=== PATIENT | female | born 1935 | race Caucasian/White ===

== ENCOUNTER 2017-08-18 13:35 | Observation (INO) ==
--- NOTE | 2017-08-18 17:40 | Internal Med History&Physical ---
Date of Encounter: 08/18/17 Time of Encounter: 17:36 Assessment and Plan (1) UTI (urinary tract infection) Current visit: No Status: Acute recent will recheck ua and decide in needs treatment Qualifiers: Urinary tract infection type: site unspecified Hematuria presence: without hematuria Qualified Code(s): N39.0 - Urinary tract infection, site not specified (2) Weakness Current visit: No Status: Acute due to anemia needs blood transfusion (3) GI bleed Current visit: No Status: Acute very likely UGI bleed Qualifiers: GI bleed type/associated pathology: unspecified gastrointestinal hemorrhage type Qualified Code(s): K92.2 - Gastrointestinal hemorrhage, unspecified (4) Hypertension Current visit: No Status: Chronic chronic well controlled Qualifiers: Hypertension type: essential hypertension Qualified Code(s): I10 - Essential (primary) hypertension (5) Anemia Current visit: Yes Status: Acute Qualifiers: Anemia type: unspecified type Qualified Code(s): D64.9 - Anemia, unspecified Internal Medicine - H&P: HPI Chief complaint: transfer from [facility] due to gi bleed Admitted From: Intrahospital Transfer Plans for Post Hospital Care: Home History of present illness: Ms. Bauer is a 81 year old female Patient with history of hypertension, DVT in the past, smoking history. Patient has some black stools over the weekend and presented to [facility] emergency room having some lightheadedness diagnosed with a GI bleed and admitted there hemoglobin had dropped n further from 8.9 to 7.2 e transferred here for GI evaluation. Patient is not having any chest pain. We will consult Dr. Dickerson for further evaluation. Past Med Surg Social Fam HX - Past Medical History Medical history: hypertension, other Psychiatric history: anxiety - Past Surgical History Surgical History: non-contributory - Social History Smoking Status: Never smoker Smokeless Tobacco Status: No Alcohol use: none Drug use: none - Family History Mother Living Status: Cause of : During childbirth Father Living Status: Hx Family Cardiac Disorders: (Aneurysm) Internal Medicine - H&P: Meds Lisinopril [Zestril] 10 mg PO DAILY 08/16/17 [History] Metoprolol [Lopressor] 12.5 mg PO BID 08/16/17 [History] Verapamil ER (24 HR) [Calan SR] 240 mg PO DAILY 08/16/17 [History] Ascorbic Acid [Vitamin C] 500 mg PO DAILY@0630 tablet 08/18/17 [Rx] Ferrous Sulfate 325 mg PO DAILY@0630 tablet 08/18/17 [Rx] 3 Allergy/AdvReac Type Severity Reaction Status Date / Time Penicillins Allergy Hives Verified 08/15/17 11:00 All Systems PM: A 10-system review of systems was performed and is negative for pertinent findings except as documented above in the HPI. - Constitutional Constitutional: lethargy, weakness - EENT Eyes: no change in vision, no discharge, no pain, no photophobia Ears: no ear discharge, no ear pain, no tinnitus Nose, mouth and throat: no dysphagia, no nasal discharge, no neck pain, no sore throat - Cardiovascular Cardiovascular ROS IM: lightheadedness - Respiratory Respiratory: no cough, no dyspnea, no wheezing, no excessive phlegm production - Gastrointestinal Gastrointestinal: melena - Genitourinary Genitourinary: no change in urinary stream, no dysuria, no flank pain, no hematuria - Constitutional Vitals: Temp Pulse Resp BP Pulse Ox 98.1 F 99 18 153/70 99 08/18/17 17:09 08/18/17 17:09 08/18/17 17:09 08/18/17 17:09 08/18/17 17:18 - Head Head exam: Present: atraumatic, normocephalic - Eye Eye exam: Present: PERRL, conjuntiva pink, sclera anicteric Pupils: Present: PERRL - Neck Neck exam general surgery: Present: supple, trachea midline. Absent: lymphadenopathy - Respiratory Respiratory exam: Present: CTAB. Absent: accessory muscle use, rales, rhonchi, wheezes - Cardiovascular Cardiovascular exam: Present: RRR, +S1, +S2. Absent: diastolic murmur, gallop, rubs, systolic murmur - GI/Abdominal GI/Abdominal exam: Present: normal bowel sounds, soft, no peritoneal signs. Absent: distended, tenderness - Extremities Exam Extremities exam: Present: warm, radial pulses palpable and symmetrical. Absent : calf tenderness, cyanotic, pedal edema - Neurological Exam Neurological exam: Present: CN II-XII intact, oriented X3, no focal deficits. Absent: pronater drift, facial droop, speech deficit - Skin Skin exam: Present: dry, intact
[2017-08-18] MEDS ORDERED: Acetaminophen 325 MG TABLET PO PRN (17:57)
[2017-08-18] MEDS ORDERED: Naloxone 0.4 MG/ML INJ IVP PRN (17:57)
[2017-08-18] MEDS ORDERED: 0.9 % Sodium Chloride 250 ML ONE (21:42)
[2017-08-19] MEDS ORDERED: 0.9 % Sodium Chloride 250 ML ONE (01:52)
[2017-08-19] MEDS: Ascorbic Acid 500 MG TABLET PO SCH (06:34)
[2017-08-19 06:56] LABS: Eosinophils # 0.2 K/mcL (0.0-0.6); Hematocrit 29.7 % (35.3-44.9); Hemoglobin 9.8 g/dL (11.5-15.4); Immature Granulocytes % 0.5 % (0-4); Lymphocytes # 2.5 K/mcL (0.6-4.6); Lymphocytes % 38.5 %; Mean Corpuscular Hemoglobin 30.2 pg (28.0-33.3); Mean Corpuscular Volume 91.4 fL (83.0-100.0); Mean Platelet Volume 10.2 fL (9.4-12.4); Monocytes # 0.7 K/mcL (0.0-1.3); Monocytes % 10.5 %; Nucleated Red Blood Cells 0.3 /100 WBC (0); Platelet Count 189 K/mcL (140-400); Red Blood Count 3.25 M/mcL (3.82-4.97); Segmented Neutrophils % 47.5 %
[2017-08-19 07:09] LABS: Alanine Aminotransferase 9 Units/L (7-52); Albumin/Globulin Ratio 1.7 (1.1-2.2); Alkaline Phosphatase 40 Units/L (34-104); Aspartate Amino Transferase 14 Units/L (13-39); BUN/Creatinine Ratio 24 (6-26); Bilirubin,Total 0.6 mg/dL (0.3-1.0); Blood Urea Nitrogen 20 mg/dL (8-23); Calcium 8.2 mg/dL (8.6-10.3); Carbon Dioxide 25 mEq/L (23-29); Chloride 112 mEq/L (98-107); Chol/HDL Ratio 3.5 (0-4.9); Cholesterol 156 mg/dL (< 200); Globulin 1.8 g/dL (2.4-3.5); Glucose 90 mg/dL (70-105); HDL Cholesterol 45 mg/dL (40-59); LDL Cholesterol,Calculated 99 mg/dL (0-99); Magnesium 1.9 mg/dL (1.6-2.6); Osmolality,Calculated 294 (280-300); Potassium 3.8 mEq/L (3.5-5.1); Sodium 141 mEq/L (136-145); Total Protein 4.8 g/dL (6.4-8.9); Triglycerides 60 mg/dL (< 150); eGFR For African Americans > 60 (> 60); eGFR For Non-African Americans > 60 (> 60)
[2017-08-19 09:27] LABS: Prothrombin Time 10.9 Seconds (9.4-12.1)
--- NOTE | 2017-08-19 11:07 | Gastroenterology Consult Note ---
<Poly Wilson - Last Filed: 08/19/17 11:04> Date of Encounter: 08/19/17 Time of Encounter: 10:15 - Assessment and plan (1) GI bleed Current Visit: No Status: Acute Assessment and plan: Pt with black tarry stools. Will plan for EGD, may need colonoscopy if source of bleeding not found. Qualifiers: GI bleed type/associated pathology: unspecified gastrointestinal hemorrhage type Qualified Code(s): K92.2 - Gastrointestinal hemorrhage, unspecified - Time Spent With Patient Total time spent is greater than 50% in coordination of care (as documented) at patient's floor/unit and/or counseling patient: GI History of Present Illness - Data of Consult Patient: new to practice Consult date: 08/19/17 Requesting Physician: Luiza Yin MD - Consult Narrative Reason for consult: tarry stools History of present illness: Ms. Bauer is a 81 year old female Patient with history of hypertension, DVT in the past, smoking history. Patient reports on Wednesday she was so week she could not even walk. She was seen at urgent care and reports while she was there she had a large black stool, denies any since that time. She denies any bright red rectal bleeding. She denies abdominal pain, nausea, vomiting or diarrhea. She states she has lost 20 pounds the past year by following weight watchers. Hgb dropped to 7.2 she was transfused 2 units prbcs and is up to 9.[address] abdomen showed chronic large hiatal hernia. Troponin was mildly elevated Colonoscopy: , 10 years ago per pts reports EGD: 02/23 gastric polyps benign NSAIDS/ASA: rarely takes NSAIDS Anticoagulants:denies Past Med Surg Social Fam HX - Past Medical History Medical history: hypertension, other Psychiatric history: anxiety - Past Surgical History Surgical History: non-contributory - Social History Smoking Status: Never smoker Smokeless Tobacco Status: No Alcohol use: none Drug use: none - Family History Mother Living Status: Cause of : During childbirth Father Living Status: Hx Family Cardiac Disorders: (Aneurysm) Review of Systems: GI: as per [place] GENERAL: denies fever or chills EYES: denies yellow discoloration ENT: denies pain with swallowing or difficulty swallowing CARDIO: denies chest pain, palpitations RESP:Shortness of breath with exertion : denies change in color of urine NEURO: weakness HEME: Denies any bruising MS: denies joint pain, joint swelling or back pain. DERM: denies rash or itching PSYCH: Denies history of anxiety or depression - Constitutional Vitals: Temp Pulse Resp BP Pulse Ox 98 F 86 20 146/79 99 08/19/17 05:15 08/19/17 09:00 08/19/17 05:15 08/19/17 09:00 08/18/17 17:18 Exam: CONSTITUTIONAL:~alert, no acute distress.~HEAD:~normocephalic.~EYES:~no jaundice.~NECK:~no obvious swelling.~HEART:~regular rate and rhythm, no murmurs. ~LUNGS:~bilateral good air entry.~ABDOMEN:~non distended, soft, non tender, no masses palpable, no organomegaly.~RECTAL EXAM:~Deferred.~EXTREMITIES:~no clubbing, cyanosis or edema.~SKIN:~pallor noted, no stigmata of chronic liver disease.~NEUROLOGIC:~no obvious focal defect.~~~~ Results - Labs CBC & Chem 7: 08/19/17 06:13 08/19/17 06:13 Labs: Last Result Calcium 8.2 mg/dL (8.6-10.3) L 08/19/17 06:13 Troponin I 0.04 ng/mL (< 0.04) H* 08/19/17 08:56 Triglycerides 60 mg/dL (< 150) 08/19/17 06:13 Entire Visit Hgb 9.8 g/dL (11.5-15.4) L D 08/19/17 06:13 Hct 29.7 % (35.3-44.9) L 08/19/17 06:13 PT 10.9 Seconds (9.4-12.1) 08/19/17 08:56 Total Bilirubin 0.6 mg/dL (0.3-1.0) 08/19/17 06:13 AST 14 Units/L (13-39) 08/19/17 06:13 ALT 9 Units/L (7-52) 08/19/17 06:13 - ABG ABG results: PT/INR, D-dimer PT 10.9 Seconds (9.4-12.1) 08/19/17 08:56 Consult Discharge Plan - Plan Referrals: Maurice Betts MD [Primary Care Provider] - <Praful Dickerson - Last Filed: 08/19/17 17:32> Date of Encounter: 08/19/17 Time of Encounter: 17:30 - Time Spent With Patient Total time spent is greater than 50% in coordination of care (as documented) at patient's floor/unit and/or counseling patient: GI History of Present Illness - Data of Consult Requesting Physician: Luiza Yin MD - Consult Narrative History of present illness: Ms. Bauer is a 81 year old female - Constitutional Vitals: Temp Pulse Resp BP Pulse Ox 98.5 F 96 16 185/83 94 08/19/17 15:52 08/19/17 15:52 08/19/17 15:52 08/19/17 15:52 08/19/17 15:52 Results - Labs CBC & Chem 7: 08/19/17 06:13 08/19/17 06:13 Labs: Last Result Calcium 8.2 mg/dL (8.6-10.3) L 08/19/17 06:13 Troponin I 0.04 ng/mL (< 0.04) H* 08/19/17 08:56 Triglycerides 60 mg/dL (< 150) 08/19/17 06:13 Entire Visit Hgb 9.8 g/dL (11.5-15.4) L D 08/19/17 06:13 Hct 29.7 % (35.3-44.9) L 08/19/17 06:13 PT 10.9 Seconds (9.4-12.1) 08/19/17 08:56 Total Bilirubin 0.6 mg/dL (0.3-1.0) 08/19/17 06:13 AST 14 Units/L (13-39) 08/19/17 06:13 ALT 9 Units/L (7-52) 08/19/17 06:13 - ABG ABG results: PT/INR, D-dimer PT 10.9 Seconds (9.4-12.1) 08/19/17 08:56 - Attending Attestation I have personally performed a face to face evaluation on this patient. I have reviewed and agree with the care plan. History and Exam by me shows: Pt seen. anemia, melena. EGD today
[2017-08-19] MEDS: cefTRIAXone 1,000 MG in Water for inj. (sterile) 20 ML 10 ML IVP SCH (11:12)
[2017-08-19] MEDS: Pantoprazole 40 MG VIAL IVP SCH ×2 (11:13→18:26)
[2017-08-19] MEDS ORDERED: *HR* FentaNYL (PF) 100 MCG/2 ML VIAL ONE (15:39)
[2017-08-19] MEDS ORDERED: *HR* Midazolam HCl 5 MG/5 ML VIAL IVP ONE (15:39)
[2017-08-19] MEDS ORDERED: Simethicone 40 MG/0.6 ML MLS IR ONE ×2 (15:56→17:33)
[2017-08-19] MEDS ORDERED: *HR* FentaNYL (PF) 100 MCG/2 ML VIAL IVP ONE ×2 (15:56→17:33)
[2017-08-19] MEDS ORDERED: Tetracaine/Benzocaine/Butamben 200MG/SPRAY (100SPY/BOT) MM ONE ×2 (15:56→17:33)
[2017-08-19] MEDS ORDERED: *HR* Midazolam HCl 2 MG/2 ML VIAL IVP ONE ×2 (15:56→17:33)
[2017-08-19] MEDS ORDERED: 0.9 % Sodium Chloride 1,000 ML IVC SCH (16:00)
--- NOTE | 2017-08-19 17:20 | Internal Med Progress Note ---
Date of Encounter: 08/19/17 Time of Encounter: 15:11 - Assessment and plan (1) GI bleed Current Visit: No Status: Acute Assessment and plan: - Pt states she has remote gastric ulcer history in the past. She denies chronic nsaid use - Given 2 units PRBC (08/18, 08/19) - NPO - GI consulted, recommendations appreciated - cycle H&H - Continue IV Protonix BID - Likely EGD today/tomorrow - Transfuse as needed Qualifiers: GI bleed type/associated pathology: unspecified gastrointestinal hemorrhage type Qualified Code(s): K92.2 - Gastrointestinal hemorrhage, unspecified (2) History of DVT (deep vein thrombosis) Current Visit: Yes Status: Acute Assessment and plan: Patient not on anticoagulant. Mechanical DVT prophylaxis only given patient GI bleed. (3) UTI (urinary tract infection) Current Visit: No Status: Acute Assessment and plan: Rocephin x3 days Qualifiers: Urinary tract infection type: site unspecified Hematuria presence: without hematuria Qualified Code(s): N39.0 - Urinary tract infection, site not specified (4) Weakness Current Visit: No Status: Acute Assessment and plan: Likely due to anemia (5) Hypertension Current Visit: No Status: Chronic Assessment and plan: Continue Lisinopril 10 mg daily Metoprolol 12.5 mg BID Add Hydralazine IV prn. Qualifiers: Hypertension type: essential hypertension Qualified Code(s): I10 - Essential (primary) hypertension (6) Elevated troponin Current Visit: Yes Status: Acute Assessment and plan: Troponin borderline elevated at 0.06 then came down to 0.04. She had no complaints of chest pain or shortness of breath. A troponin done three days ago was negative. This is likely demand ischemia in the setting of GI bleed. Will continue to monitor and transfuse patient as needed. - Subjective Interval history: Patient is 81 year old female with history of hypertension and previous DVT who came in to [facility] ED for dizziness. She was having dizziness on August 13 and went to urgent care on August 15 and was diagnosed with UTI and prescribed Cipro. When she was at urgent care center she had black tarry stool. She presented to [facility] yesterday after symptoms not improving on Cipro. She was found to have hemoglobin of 8.9. She was admitted to their medical floor for treatemtn. She was given IV Protonix and a CT abdomen/pelvis done showed no acute abnormalities, but did show chronic large hiatal hernia. A repeat hemoglobin showed gradual decrease to 7.2 so patient was transferred here to [facility] for EGD and further workup. GI was consulted here and patient evaluated by GI and recommendations pending. She has been transfused two units PRBC and patient tells me she feels a little better but still dizzy. She denies any abdominal pain, n/v. Tarry stool resolved but she did pass hard BM earlier in the day. - Constitutional Vitals: Temp Pulse Resp BP Pulse Ox 98.5 F 96 16 185/83 94 08/19/17 15:52 08/19/17 15:52 08/19/17 15:52 08/19/17 15:52 08/19/17 15:52 - Head Head exam: Present: atraumatic, normocephalic - Eye Eye exam: Present: PERRL, conjuntiva pink, sclera anicteric Pupils: Present: PERRL - Neck Neck exam general surgery: Present: supple, trachea midline. Absent: lymphadenopathy - Respiratory Respiratory exam: Present: CTAB. Absent: accessory muscle use, rales, rhonchi, wheezes - Cardiovascular Cardiovascular exam: Present: RRR, +S1, +S2. Absent: diastolic murmur, gallop, rubs, systolic murmur - GI/Abdominal GI/Abdominal exam: Present: normal bowel sounds, soft, tenderness, no peritoneal signs. Absent: distended - Extremities Exam Extremities exam: Present: warm, radial pulses palpable and symmetrical. Absent : calf tenderness, cyanotic, pedal edema - Neurological Exam Neurological exam: Present: CN II-XII intact, oriented X3, no focal deficits. Absent: pronater drift, facial droop, speech deficit - Skin Skin exam: Present: dry, intact Internal Medicine: Result - Labs CBC & Chem 7: 08/19/17 06:13 08/19/17 06:13 Labs: Short CBC 08/19/17 Range/Units 06:13 WBC 6.4 (4.3-11.1) K/mcL Hgb 9.8 L D (11.5-15.4) g/dL Hct 29.7 L (35.3-44.9) % Plt Count 189 (140-400) K/mcL Neutrophils # 3.0 (1.6-8.9) K/mcL BMP 08/19/17 06:13 Sodium 141 Potassium 3.8 Chloride 112 H Carbon Dioxide 25 BUN 20 Creatinine 0.82 Glucose 90 Calcium 8.2 L Cardiac Enzymes 08/18/17 08/19/17 08/19/17 Range/Units 18:17 06:13 08:56 Troponin I 0.06 H* 0.06 H* 0.04 H* (< 0.04) ng/mL Liver Function 08/19/17 Range/Units 06:13 Total Bilirubin 0.6 (0.3-1.0) mg/dL AST 14 (13-39) Units/L ALT 9 (7-52) Units/L Alkaline Phosphatase 40 (34-104) Units/L Albumin 3.0 L (3.5-5.7) g/dL - ABG Interpretation ABG results: PT/INR, D-dimer PT 10.9 Seconds (9.4-12.1) 08/19/17 08:56 Consult Discharge Plan - Plan Referrals: Maurice Betts MD [Primary Care Provider] -
[2017-08-19] MEDS ORDERED: SODIUM CHLORIDE/NAHCO3/KCL/PEG 4,000 ML SOLN.RECON PO ONE (18:00)
[2017-08-19 18:33] LABS: Hematocrit 32.5 % (35.3-44.9); Hemoglobin 10.8 g/dL (11.5-15.4)
[2017-08-20 01:18] LABS: Basophils % 0.1 %; Eosinophils # 0.1 K/mcL (0.0-0.6); Eosinophils % 1.6 %; Hematocrit 31.9 % (35.3-44.9); Hemoglobin 10.6 g/dL (11.5-15.4); Immature Granulocytes % 0.1 % (0-4); Lymphocytes % 28.8 %; Mean Corpuscular HGB Conc 33.2 g/dL (31.6-35.5); Mean Corpuscular Hemoglobin 29.7 pg (28.0-33.3); Mean Corpuscular Volume 89.4 fL (83.0-100.0); Mean Platelet Volume 9.7 fL (9.4-12.4); Monocytes # 0.8 K/mcL (0.0-1.3); Monocytes % 11.5 %; Neutrophils # 3.9 K/mcL (1.6-8.9); Platelet Count 206 K/mcL (140-400); Red Blood Count 3.57 M/mcL (3.82-4.97); Red Cell Distribution Width 14.1 % (11.5-14.5); Segmented Neutrophils % 57.9 %
[2017-08-20 01:37] LABS: BUN/Creatinine Ratio 15 (6-26); Blood Urea Nitrogen 13 mg/dL (8-23); Calcium 8.3 mg/dL (8.6-10.3); Carbon Dioxide 25 mEq/L (23-29); Chloride 103 mEq/L (98-107); Glucose 101 mg/dL (70-105); Osmolality,Calculated 278 (280-300); Potassium 3.9 mEq/L (3.5-5.1); Sodium 134 mEq/L (136-145); eGFR For African Americans > 60 (> 60); eGFR For Non-African Americans > 60 (> 60)
[2017-08-20] MEDS: cefTRIAXone 1,000 MG in Water for inj. (sterile) 20 ML 10 ML IVP SCH (09:56)
[2017-08-20] MEDS: Ascorbic Acid 500 MG TABLET PO SCH (09:56)
[2017-08-20] MEDS: Pantoprazole 40 MG VIAL IVP SCH ×2 (09:57→17:56)
[2017-08-20] MEDS ORDERED: Metoprolol XL (24 HR) Succ 50 MG TAB.ER.24H PO STA (12:19)
[2017-08-20] MEDS ORDERED: *HR* Midazolam HCl 5 MG/5 ML VIAL IVP ONE (13:35)
[2017-08-20] MEDS ORDERED: *HR* FentaNYL (PF) 100 MCG/2 ML VIAL ONE (13:36)
[2017-08-20] MEDS ORDERED: *HR* FentaNYL (PF) 100 MCG/2 ML VIAL IVP ONE (13:51)
[2017-08-20] MEDS ORDERED: Simethicone 40 MG/0.6 ML MLS IR ONE (13:51)
[2017-08-20] MEDS ORDERED: *HR* Midazolam HCl 2 MG/2 ML VIAL IVP ONE (13:51)
--- NOTE | 2017-08-20 13:52 | History & Physical Report ---
Date of Encounter: 08/20/17 Time of Encounter: 13:52 24 Hour HP Update - Instructions Instructions: If the History and Physical is less than 30 days old and was completed prior to A.M. admission and or procedure and has NOT been updated on calendar day of procedure please complete this update prior to performing procedure. - Update Patient reports changes in Medical Condition: No Changes in examination, assessment, or condition: No Changes in Medication: No Preop tests/diagnostics Reviewed: Yes Surgery Remains Indicated: Yes Consent for Planned Operative Procedure(s) Verified: Yes - Pre-Operative Checklist Preoperative Checklist Indicated: Yes Prophylactic Antibiotic Ordered: No Home Medications Include Beta Narinder: Yes
[2017-08-20] MEDS: Sucralfate 1 GM TABLET PO SCH ×2 (16:07→22:37)
--- NOTE | 2017-08-20 19:25 | Internal Med Progress Note ---
Date of Encounter: 08/20/17 Time of Encounter: 15:23 - Assessment and plan (1) GI bleed Current Visit: No Status: Acute Assessment and plan: - Pt states she has remote gastric ulcer history in the past. She denies chronic nsaid use EGD 08/19 showed gastritis Colonoscopy 08/10 showed non-bleeding internal hemorrhoids - Given 2 units PRBC (08/18, 08/19) - Currently H&H and hemodynamics are stable - Advance diet as tolerated - Continue IV PPI, add carafate Qualifiers: GI bleed type/associated pathology: unspecified gastrointestinal hemorrhage type Qualified Code(s): K92.2 - Gastrointestinal hemorrhage, unspecified (2) History of DVT (deep vein thrombosis) Current Visit: Yes Status: Acute Assessment and plan: Patient not on anticoagulant. Mechanical DVT prophylaxis only given patient GI bleed. (3) UTI (urinary tract infection) Current Visit: No Status: Acute Assessment and plan: Rocephin x3 days Qualifiers: Urinary tract infection type: site unspecified Hematuria presence: without hematuria Qualified Code(s): N39.0 - Urinary tract infection, site not specified (4) Weakness Current Visit: No Status: Acute Assessment and plan: Patient told me today she is worried about returning home alone from weakness. Patient okay with setting up home PT/OT. (5) Hypertension Current Visit: No Status: Chronic Assessment and plan: Continue Lisinopril 10 mg daily Metoprolol 12.5 mg BID Hydralazine IV prn. Qualifiers: Hypertension type: essential hypertension Qualified Code(s): I10 - Essential (primary) hypertension (6) Elevated troponin Current Visit: Yes Status: Acute Assessment and plan: Troponin borderline elevated at 0.06 then came down to 0.04. She had no complaints of chest pain or shortness of breath. A troponin done three days ago was negative. This is likely demand ischemia in the setting of GI bleed. Will continue to monitor and transfuse patient as needed. - Subjective Interval history: Patient had EGD done 08/19 showed large hiatal hernia, gastritis. Colonoscopy today showed non-bleeding internal hemorrhoids. Patient has no complaints. - Constitutional Vitals: Temp Pulse Resp BP Pulse Ox 97.7 F 99 14 118/73 99 08/20/17 16:21 08/20/17 16:21 08/20/17 16:21 08/20/17 16:21 08/20/17 16:21 - Head Head exam: Present: atraumatic, normocephalic - Eye Eye exam: Present: PERRL, conjuntiva pink, sclera anicteric Pupils: Present: PERRL - Neck Neck exam general surgery: Present: supple, trachea midline. Absent: lymphadenopathy - Respiratory Respiratory exam: Present: CTAB. Absent: accessory muscle use, rales, rhonchi, wheezes - Cardiovascular Cardiovascular exam: Present: RRR, +S1, +S2. Absent: diastolic murmur, gallop, rubs, systolic murmur - GI/Abdominal GI/Abdominal exam: Present: normal bowel sounds, soft, no peritoneal signs. Absent: distended, tenderness - Extremities Exam Extremities exam: Present: warm, radial pulses palpable and symmetrical. Absent : calf tenderness, cyanotic, pedal edema - Neurological Exam Neurological exam: Present: CN II-XII intact, oriented X3, no focal deficits. Absent: pronater drift, facial droop, speech deficit - Skin Skin exam: Present: dry, intact Internal Medicine: Result - Labs CBC & Chem 7: 08/20/17 01:04 08/20/17 01:04 Labs: Short CBC 08/20/17 Range/Units 01:04 WBC 6.8 (4.3-11.1) K/mcL Hgb 10.6 L (11.5-15.4) g/dL Hct 31.9 L (35.3-44.9) % Plt Count 206 (140-400) K/mcL Neutrophils # 3.9 (1.6-8.9) K/mcL BMP 08/20/17 01:04 Sodium 134 L Potassium 3.9 Chloride 103 Carbon Dioxide 25 BUN 13 Creatinine 0.84 Glucose 101 Calcium 8.3 L - ABG Interpretation ABG results: PT/INR, D-dimer PT 10.9 Seconds (9.4-12.1) 08/19/17 08:56 Consult Discharge Plan - Plan Referrals: Maurice Betts MD [Primary Care Provider] -
[2017-08-21 04:13] LABS: Eosinophils # 0.2 K/mcL (0.0-0.6); Eosinophils % 3.4 %; Hematocrit 33.6 % (35.3-44.9); Hemoglobin 10.8 g/dL (11.5-15.4); Immature Granulocytes % 0.6 % (0-4); Lymphocytes # 2.2 K/mcL (0.6-4.6); Lymphocytes % 32.8 %; Mean Corpuscular HGB Conc 32.1 g/dL (31.6-35.5); Mean Corpuscular Volume 93.3 fL (83.0-100.0); Mean Platelet Volume 9.8 fL (9.4-12.4); Monocytes # 0.8 K/mcL (0.0-1.3); Monocytes % 11.6 %; Neutrophils # 3.5 K/mcL (1.6-8.9); Platelet Count 244 K/mcL (140-400); Red Cell Distribution Width 14.5 % (11.5-14.5); Segmented Neutrophils % 51.6 %
[2017-08-21 04:30] LABS: BUN/Creatinine Ratio 13 (6-26); Blood Urea Nitrogen 12 mg/dL (8-23); Calcium 8.4 mg/dL (8.6-10.3); Carbon Dioxide 25 mEq/L (23-29); Chloride 109 mEq/L (98-107); Glucose 110 mg/dL (70-105); Osmolality,Calculated 292 (280-300); Potassium 3.9 mEq/L (3.5-5.1); Sodium 141 mEq/L (136-145); eGFR For African Americans > 60 (> 60); eGFR For Non-African Americans 58 (> 60)
[2017-08-21] MEDS: Pantoprazole 40 MG VIAL IVP SCH ×2 (06:06→21:01)
[2017-08-21] MEDS: Ascorbic Acid 500 MG TABLET PO SCH (06:06)
[2017-08-21] MEDS: cefTRIAXone 1,000 MG in Water for inj. (sterile) 20 ML 10 ML IVP SCH (08:26)
[2017-08-21] MEDS: Sucralfate 1 GM TABLET PO SCH ×4 (08:26→21:02)
[2017-08-21] MEDS: Metoprolol XL (24 HR) Succ 50 MG TAB.ER.24H PO SCH (08:26)
[2017-08-21] MEDS: Verapamil ER (24 HR) 180 MG TABLET.ER PO SCH (08:26)
--- NOTE | 2017-08-21 11:53 | Discharge Summary ---
- NOTES TO OUTPATIENT PROVIDER Notes to Outpatient Provider: Recheck H&H in 2-3 days. Follow-up with primary care physician in 2-3 days. Follow-up in GI office in 3 weeks. Orders not resulted at time of discharge: Pending orders 08/19/17 18:00 Surgical Pathology [PTH] Routine 08/22/17 04:00 BMP [Basic Metabolic Panel] AM 0400 Complete Blood Count [HEME] AM 0400 Date of Encounter: 08/21/17 Time of Encounter: 11:50 - Discharge Diagnosis (1) GI bleed Priority: Primary Status: Resolved Qualifiers: GI bleed type/associated pathology: unspecified gastrointestinal hemorrhage type Qualified Code(s): K92.2 - Gastrointestinal hemorrhage, unspecified (2) History of DVT (deep vein thrombosis) Priority: Secondary Status: Acute (3) UTI (urinary tract infection) Priority: Secondary Status: Acute Qualifiers: Urinary tract infection type: site unspecified Hematuria presence: without hematuria Qualified Code(s): N39.0 - Urinary tract infection, site not specified (4) Weakness Priority: Secondary Status: Acute (5) Hypertension Priority: Secondary Status: Chronic Qualifiers: Hypertension type: essential hypertension Qualified Code(s): I10 - Essential (primary) hypertension (6) Elevated troponin Priority: Secondary Status: Acute Hospital course: Ms. Bauer is a 81 year old female with history of hypertension and prior DVT, (not on anticoagulation) presented from [facility] ED for light headedness and was diagnosed with GI bleed. She hemoglobin drop at that time going from 8.9 to 7.2 and she was transferrred for further treatment and GI evaluation. She was transfused 2 units of PRBC and hemoglobin improved to 9.8. She had an EGD on showing gastritis and no active bleeding. She had a colonoscopy done on that showed non-bleeding internal hemorrhoids. She was started on carafate and IV ppi for gastritis. Patient hemoglobin and hemodynamics were stable. She was still fairly weak from deconditioning as her acute anemia resolved and she still had some weakness. PT/OT evaluated patient. Patient activity was increased and she will be discharged home. She did not qualify for SNF but she will be arranged for home with PT/OT. - Time Spent with Patient Total time spent providing and/or coordinating discharge services: - Discharge Medications Prescriptions: Sucralfate [Carafate] 1 gm PO QIDAC 14 Days #56 tablet Home Medications: Ascorbic Acid [Vitamin C] 500 mg PO DAILY@0630 tablet 08/18/17 [Rx] Ferrous Sulfate 325 mg PO DAILY@0630 tablet 08/18/17 [Rx] Lisinopril [Zestril] 5 mg PO DAILY 08/19/17 [History] Metoprolol Succinate [Toprol Xl] 100 mg PO DAILY 08/19/17 [History] Verapamil HCl 360 mg PO DAILY 08/19/17 [History] Omeprazole [PriLOSEC] 40 mg PO DAILY #21 cap 08/21/17 [Rx] Sucralfate [Carafate] 1 gm PO QIDAC 14 Days #56 tablet 08/21/17 [Rx] Allergies/Adverse Reactions: 3 Allergy/AdvReac Type Severity Reaction Status Date / Time Iodinated Contrast- Oral and Allergy Rash Verified 08/19/17 16:03 IV Dye Penicillins Allergy Hives Verified 08/19/17 09:03 Date of admission: 08/18/17 17:57 Primary care physician: Maurice Betts MD Consults: 08/18/17 17:58 Consult to Physician [CONS] Routine Consulting Provider: Praful Dickerson Reason for Consult: gi bleed Time Notified: 17:59 Call Completed: No Discharging clinician: Luiza Yin - Constitutional Vitals: Temp Pulse Resp BP Pulse Ox 97.6 F 72 14 104/66 97 08/21/17 11:35 08/21/17 11:35 08/21/17 11:35 08/21/17 11:35 08/21/17 11:35 - Head Head exam: Present: atraumatic, normocephalic - Eye Eye exam: Present: PERRL, conjuntiva pink, sclera anicteric Pupils: Present: PERRL - Neck Neck exam general surgery: Present: supple, trachea midline. Absent: lymphadenopathy - Respiratory Respiratory exam: Present: CTAB. Absent: accessory muscle use, rales, rhonchi, wheezes - Cardiovascular Cardiovascular exam: Present: RRR, +S1, +S2. Absent: diastolic murmur, gallop, rubs, systolic murmur - GI/Abdominal GI/Abdominal exam: Present: normal bowel sounds, soft, no peritoneal signs. Absent: distended, tenderness - Extremities Exam Extremities exam: Present: warm, radial pulses palpable and symmetrical. Absent : calf tenderness, cyanotic, pedal edema - Neurological Exam Neurological exam: Present: CN II-XII intact, oriented X3, no focal deficits. Absent: pronater drift, facial droop, speech deficit - Skin Skin exam: Present: dry, intact - Patient Status Disposition: Home Health Service Condition: Good Functional capacity at discharge: independent ambulation - Discharge Instructions Follow Up With: Maurice Betts MD [Primary Care Provider] - - Diet and Activity Activity: as per physical therapy Diet: advance to your usual diet
--- NOTE | 2017-08-21 12:04 | Physician Discharge Referral ---
Home Health/Hosp Referral Info Transfer to: Home Health Provider in Charge Post Discharge: PCP - Diagnosis (1) GI bleed Priority: Primary Status: Resolved (2) History of DVT (deep vein thrombosis) Priority: Secondary Status: Acute (3) UTI (urinary tract infection) Priority: Secondary Status: Acute (4) Weakness Priority: Secondary Status: Acute (5) Hypertension Priority: Secondary Status: Chronic (6) Elevated troponin Priority: Secondary Status: Acute - Respiratory Orders Smoking Cessation: Smoking cessation has been advised. For more information, call the [employer] Quit Line at 4-321-CZKV-NOW. - Services Needed Following services are medically necessary services: Physical Therapy, Occupational Therapy - Transfer Medications Prescriptions: Omeprazole [PriLOSEC] 40 mg PO DAILY #21 cap Sucralfate [Carafate] 1 gm PO QIDAC 14 Days #56 tablet Home Medications: Ascorbic Acid [Vitamin C] 500 mg PO DAILY@0630 tablet 08/18/17 [Rx] Ferrous Sulfate 325 mg PO DAILY@0630 tablet 08/18/17 [Rx] Lisinopril [Zestril] 5 mg PO DAILY 08/19/17 [History] Metoprolol Succinate [Toprol Xl] 100 mg PO DAILY 08/19/17 [History] Verapamil HCl 360 mg PO DAILY 08/19/17 [History] Omeprazole [PriLOSEC] 40 mg PO DAILY #21 cap 08/21/17 [Rx] Sucralfate [Carafate] 1 gm PO QIDAC 14 Days #56 tablet 08/21/17 [Rx] Allergies/Adverse Reactions: 3 Allergy/AdvReac Type Severity Reaction Status Date / Time Iodinated Contrast- Oral and Allergy Rash Verified 08/19/17 16:03 IV Dye Penicillins Allergy Hives Verified 08/19/17 09:03 Certification: Further, I certify that my clinical findings support that this patient is homebound (i.e. absences from home require considerable and taxing effort and are for medical reasons or voodoo services or infrequently or short duration when for other reasons) because: Homebound Reason: Leaving home requires considerable and taxing effort due to condition Attestation: My signature below is to certify that this patient is under my care and that I, or nurse practitioner, or a physician's practice assistant working with me, has a face-to -face encounter with this patient.
[2017-08-22] MEDS: Pantoprazole 40 MG VIAL IVP SCH (05:33)
[2017-08-22] MEDS: Ascorbic Acid 500 MG TABLET PO SCH (06:00)
[2017-08-22 07:17] VITALS: BP 115/67
[2017-08-22 08:22] LABS: Eosinophils # 0.2 K/mcL (0.0-0.6); Eosinophils % 3.6 %; Hemoglobin 9.6 g/dL (11.5-15.4); Immature Granulocytes % 0.2 % (0-4); Lymphocytes # 1.8 K/mcL (0.6-4.6); Lymphocytes % 29.9 %; Mean Corpuscular Hemoglobin 29.5 pg (28.0-33.3); Mean Corpuscular Volume 92.3 fL (83.0-100.0); Mean Platelet Volume 10.3 fL (9.4-12.4); Monocytes # 0.6 K/mcL (0.0-1.3); Monocytes % 10.6 %; Neutrophils # 3.4 K/mcL (1.6-8.9); Platelet Count 216 K/mcL (140-400); Red Blood Count 3.25 M/mcL (3.82-4.97); Red Cell Distribution Width 14.4 % (11.5-14.5); Segmented Neutrophils % 55.7 %
[2017-08-22 08:51] LABS: BUN/Creatinine Ratio 19 (6-26); Blood Urea Nitrogen 17 mg/dL (8-23); Calcium 8.2 mg/dL (8.6-10.3); Carbon Dioxide 25 mEq/L (23-29); Chloride 109 mEq/L (98-107); Glucose 91 mg/dL (70-105); Osmolality,Calculated 289 (280-300); Potassium 3.6 mEq/L (3.5-5.1); Sodium 139 mEq/L (136-145); eGFR For African Americans > 60 (> 60); eGFR For Non-African Americans > 60 (> 60)
[2017-08-22] MEDS: Sucralfate 1 GM TABLET PO SCH (08:52)
[2017-08-22] MEDS: Verapamil ER (24 HR) 180 MG TABLET.ER PO SCH (08:52)
[2017-08-22] MEDS: Metoprolol XL (24 HR) Succ 50 MG TAB.ER.24H PO SCH (08:53)
[2017-08-22] MEDS: cefTRIAXone 1,000 MG in Water for inj. (sterile) 20 ML 10 ML IVP SCH (08:53)
--- NOTE | 2017-08-22 11:05 | Internal Med Progress Note ---
Date of Encounter: 08/22/17 Time of Encounter: 11:03 - Assessment and plan (1) GI bleed Current Visit: No Status: Resolved Assessment and plan: - Pt states she has remote gastric ulcer history in the past. She denies chronic nsaid use EGD 08/19 showed gastritis Colonoscopy 08/10 showed non-bleeding internal hemorrhoids Patient agrees to follow-up with PCP 1-2 days with a repeat CBC tomorrow. Qualifiers: GI bleed type/associated pathology: unspecified gastrointestinal hemorrhage type Qualified Code(s): K92.2 - Gastrointestinal hemorrhage, unspecified (2) History of DVT (deep vein thrombosis) Current Visit: Yes Status: Acute Assessment and plan: Patient not on anticoagulant. Mechanical DVT prophylaxis only given patient GI bleed. (3) UTI (urinary tract infection) Current Visit: No Status: Resolved Assessment and plan: Rocephin x3 days Qualifiers: Urinary tract infection type: site unspecified Hematuria presence: without hematuria Qualified Code(s): N39.0 - Urinary tract infection, site not specified (4) Weakness Current Visit: No Status: Acute Assessment and plan: Patient told me today she is worried about returning home alone from weakness. Patient okay with setting up home PT/OT. (5) Hypertension Current Visit: No Status: Chronic Assessment and plan: Continue Lisinopril 10 mg daily Metoprolol 12.5 mg BID Hydralazine IV prn. Qualifiers: Hypertension type: essential hypertension Qualified Code(s): I10 - Essential (primary) hypertension (6) Elevated troponin Current Visit: Yes Status: Acute Assessment and plan: Troponin borderline elevated at 0.06 then came down to 0.04. She had no complaints of chest pain or shortness of breath. A troponin done three days ago was negative. This is likely demand ischemia in the setting of GI bleed. Will continue to monitor and transfuse patient as needed. - Subjective Interval history: NO acute events, ready for discharge. - Constitutional Vitals: Temp Pulse Resp BP Pulse Ox 98.7 F 76 16 115/67 93 08/22/17 07:15 08/22/17 07:15 08/22/17 07:15 08/22/17 07:15 08/22/17 07:15 - Head Head exam: Present: atraumatic, normocephalic - Eye Eye exam: Present: PERRL, conjuntiva pink, sclera anicteric Pupils: Present: PERRL - Neck Neck exam general surgery: Present: supple, trachea midline. Absent: lymphadenopathy - Respiratory Respiratory exam: Present: CTAB. Absent: accessory muscle use, rales, rhonchi, wheezes - Cardiovascular Cardiovascular exam: Present: RRR, +S1, +S2. Absent: diastolic murmur, gallop, rubs, systolic murmur - GI/Abdominal GI/Abdominal exam: Present: normal bowel sounds, soft, no peritoneal signs. Absent: distended, tenderness - Extremities Exam Extremities exam: Present: warm, radial pulses palpable and symmetrical. Absent : calf tenderness, cyanotic, pedal edema - Neurological Exam Neurological exam: Present: CN II-XII intact, oriented X3, no focal deficits. Absent: pronater drift, facial droop, speech deficit - Skin Skin exam: Present: dry, intact Internal Medicine: Result - Labs CBC & Chem 7: 08/22/17 06:57 08/22/17 06:57 Labs: Short CBC 08/22/17 Range/Units 06:57 WBC 6.1 (4.3-11.1) K/mcL Hgb 9.6 L (11.5-15.4) g/dL Hct 30.0 L (35.3-44.9) % Plt Count 216 (140-400) K/mcL Neutrophils # 3.4 (1.6-8.9) K/mcL BMP 08/22/17 06:57 Sodium 139 Potassium 3.6 Chloride 109 H Carbon Dioxide 25 BUN 17 Creatinine 0.89 Glucose 91 Calcium 8.2 L - ABG Interpretation ABG results: PT/INR, D-dimer PT 10.9 Seconds (9.4-12.1) 08/19/17 08:56 Consult Discharge Plan - Plan Referrals: Maurice Betts MD [Primary Care Provider] - Prescriptions: Omeprazole [PriLOSEC] 40 mg PO DAILY #21 cap Sucralfate [Carafate] 1 gm PO QIDAC 14 Days #56 tablet
[2017-08-22 11:31] LABS: Hematocrit 36.3 % (35.3-44.9)
[2017-08-22 11:35] LABS: Hemoglobin 11.6 g/dL (11.5-15.4)
== END 2017-08-22 12:40 | disposition home health service (06) | DRG 378 ==
LOC: 3ANU
PROVIDERS: ADMIT Internal Medicine Cardiovascular Disease; ATTEND Student in an Organized Health Care Education/Training Program
PROC: ENDOEBX (2017-08-19 14:30)